=== PATIENT | male | born 1970 ===

== ENCOUNTER 2017-11-19 22:30 | Emergency (ER) | payer OTHER ==
[~2017-11-19] VITALS: Ht 180.3 cm; Wt 83.5 kg
[~2017-11-19 22:30] MED LIST: PERCOCET 5/3251 TAB PO
[2017-11-20] MEDS ORDERED: AMOX1TAB5 PO (01:21)
[2017-11-20] MEDS ORDERED: KETO10TA2 PO ×2 (01:21→01:22)
== END 2017-11-20 01:26 | disposition home or self-care (01) ==
LOC: ER 22:30
DX: K14.0 Glossitis (principal)